=== PATIENT | female | born 1940 | race Caucasian/White ===

== ENCOUNTER 2017-09-20 11:51 | Emergency (ER) | payer OTHER ==
[~2017-09-20] VITALS: Ht 172.7 cm; Wt 69.8 kg
[2017-09-20] MEDS ORDERED: MOBIC15 MG PO (12:16)
[2017-09-20] MEDS ORDERED: XANAX 0.5 MG0.5 MG PO (12:17)
[2017-09-20] MEDS ORDERED: LEXAPRO5 MG PO (12:18)
[2017-09-20] MEDS ORDERED: ULTRAM 50MG TAB50 MG PO (12:18)
[2017-09-20 13:23] VITALS: BP 129/77
[2018-02-19] MEDS ORDERED: DOXYCYCLINE 10100 MG PO (18:04)
== END 2017-09-20 13:26 | disposition home or self-care (01) ==
LOC: ER 11:51
DX: S70.01XA Contusion of right hip, initial encounter (principal); S40.011A Contusion of right shoulder, initial encounter; S09.90XA Unspecified injury of head, initial encounter; W18.30XA Fall on same level, unspecified, initial encounter; Y93.89 Activity, other specified; Y92.89 Other specified places as the place of occurrence of the external cause; Y99.8 Other external cause status

== ENCOUNTER 2017-10-19 11:32 | Inpatient (IN) | payer OTHER ==
[~2017-10-19] VITALS: Ht 172.7 cm; Wt 56.9 kg
[~2017-10-19 11:32] MED LIST: LEXAPRO5 MG PO; MOBIC15 MG PO; ULTRAM 50MG TAB50 MG PO; XANAX 0.5 MG0.5 MG PO
[2017-10-19 11:37] VITALS: BP 104/65
[2017-10-19 12:39] LABS: ABSOLUTE NEUTROPHILS 3.8 thou/uL (1.4-8.2); BASOPHILS 0.4 % (0.0-2.0); EOSINOPHILS 1.3 % (0.0-3.0); HEMATOCRIT 37.1 % (37.0-47.0); HEMOGLOBIN 12.9 gm/dL (12.0-15.0); LYMPHOCYTES 22.9 % (24.0-44.0); MCH 32.4 pg (26.0-34.0); MCHC 34.8 g/dL (28.0-37.0); MCV 93.3 fL (80.0-100.0); MONOCYTES 8.9 % (1.0-8.0); PLATELET COUNT 175 thou/uL (150-400); POLYS 66.5 % (36.0-66.0); RBC 3.98 mil/uL (4.20-5.00); RDW 12.8 % (10.5-14.5); WBC 5.8 thou/uL (4.0-11.0)
[2017-10-19 12:47] LABS: CALCIUM 9.4 mg/dL (8.5-10.1); CREATININE 0.6 mg/dL (0.6-1.0); POTASSIUM 3.9 mmol/L (3.5-5.1)
[2017-10-19] MEDS ORDERED: ASPIRIN EC81 M1 PO (13:29)
[2017-10-19 15:04] LABS: FOLIC ACID 19.8 ng/mL (8.6-58.9)
[2017-10-19 21:22] VITALS: BP 127/67
[2017-10-19 21:50] VITALS: BP 132/81
[2017-10-19 21:52] VITALS: BP 123/72
[2017-10-20 03:40] VITALS: BP 126/76
[2017-10-20 07:21] VITALS: BP 122/79
[2017-10-20 11:37] VITALS: BP 122/79
[2017-10-20 16:03] VITALS: BP 152/76
[2017-10-20 19:01] VITALS: BP 133/82
[2017-10-21 04:51] VITALS: BP 148/82
[2017-10-21 06:44] LABS: ALBUMIN 3.3 g/dL (3.4-5.0); CALCIUM 8.9 mg/dL (8.5-10.1); CREATININE 0.8 mg/dL (0.6-1.0); MAGNESIUM 1.9 mg/dL (1.8-2.4); POTASSIUM 3.7 mmol/L (3.5-5.1); TOTAL BILIRUBIN 0.4 mg/dL (<0.1-1.0); TOTAL PROTEIN 6.5 g/dL (6.4-8.2)
[2017-10-21 07:37] VITALS: BP 147/85
[2017-10-21 16:44] VITALS: BP 120/64
[2017-10-21 19:25] VITALS: BP 124/83
[2017-10-22 04:50] VITALS: BP 125/71
[2017-10-22 08:09] VITALS: BP 113/71
[2017-10-22 11:12] VITALS: BP 122/79
[2018-02-19] MEDS ORDERED: DOXYCYCLINE 10100 MG PO (18:04)
== END 2017-10-22 11:25 | disposition home or self-care (01) | DRG 543 ==
LOC: ER 11:32 → 3W 13:18 → EROBS 13:18 → 3W 21:56
PROVIDERS: Nurse Practitioner; Physician Assistant; Registered Nurse
DX: M84.359A Stress fracture, hip, unspecified, initial encounter for fracture (principal); E44.0 Moderate protein-calorie malnutrition; R26.2 Difficulty in walking, not elsewhere classified; M19.90 Unspecified osteoarthritis, unspecified site; G30.9 Alzheimer's disease, unspecified; F02.80 Dementia in other diseases classified elsewhere, unspecified severity, without behavioral disturbance, psychotic disturbance, mood disturbance, and anxiety; F32.9 Major depressive disorder, single episode, unspecified; F41.9 Anxiety disorder, unspecified; Z66 Do not resuscitate; M62.84 Sarcopenia; E53.8 Deficiency of other specified B group vitamins; Z87.891 Personal history of nicotine dependence; Z79.82 Long term (current) use of aspirin; Z79.899 Other long term (current) drug therapy
CPT/HCPCS: 10080

== ENCOUNTER → 2017-10-30 | Outpatient (CLI) | payer OTHER ==
[~2017-10-30] MED LIST changes: +ASPIRIN EC81 M1 PO; +DOXYCYCLINE 10100 MG PO
== END ==
LOC: SEN 10:49
DX: M81.0 Age-related osteoporosis without current pathological fracture (principal); E55.9 Vitamin D deficiency, unspecified

== ENCOUNTER 2019-01-21 08:21 | Emergency (ER) | payer OTHER ==
[~2019-01-21] VITALS: Ht 172.7 cm; Wt 72.6 kg
[2019-01-21 09:29] LABS: ABSOLUTE NEUTROPHILS 3.3 thou/uL (1.4-8.2); BASOPHILS 0.3 % (0.0-2.0); EOSINOPHILS 0.8 % (0.0-3.0); HEMATOCRIT 37.5 % (37.0-47.0); LYMPHOCYTES 22.3 % (24.0-44.0); MCH 31.9 pg (26.0-34.0); MCHC 34.6 g/dL (28.0-37.0); MCV 92.3 fL (80.0-100.0); MONOCYTES 7.8 % (1.0-8.0); PLATELET COUNT 173 thou/uL (150-400); POLYS 68.8 % (36.0-66.0); RBC 4.06 mil/uL (4.20-5.00); RDW 12.9 % (10.5-14.5); WBC 4.7 thou/uL (4.0-11.0)
[2019-01-21 09:37] LABS: URINE BILIRUBIN NEGATIVE (Negative); URINE BLOOD 1+ (Negative); URINE CLARITY CLEAR; URINE COLOR YELLOW; URINE GLUCOSE-RANDOM* NEGATIVE (Negative); URINE KETONES NEGATIVE (Negative); URINE LEUKOCYTES-REFLEX TRACE (Negative); URINE NITRITE-REFLEX NEGATIVE (Negative); URINE PROTEIN (DIPSTICK) NEGATIVE (Negative); URINE SPECIFIC GRAVITY <= 1.005 (1.005-1.035); URINE UROBILINOGEN 0.2 E.U./dl (0.2-1.0)
--- NOTE | 2019-01-21 09:37 | EKG ---
[place] [address] [facility] [place] [address] ELECTROCARDIOGRAM REPORT Name: AILYN LONG LACI [id number] ������������������ Admission: 01/21/19 ������������������ Attend Phys: Discharge: ������������������ Date of : 42 Report #: [id number] ����������������������������������������������������������������� [id number] THIS REPORT FOR: //name// [facility] ED Test Date: 2019-01-21 Test Time: 08:55:48 Pat Name: AILYN LONG Department: Room: Gender: F Parking Enforcement Officer: LUDWIG : 1940 Requested By: Reji Schneider Order Number: [id number] MD: Imer Adame Measurements Intervals [place] Rate: 86 P: 50 HI: 142 QRS: 54 QRSD: 82 T: 48 QT: 389 QTc: 466 Interpretive Statements Sinus rhythm Normal tracing No previous ECG available for comparison Electronically Signed On 01-21-2019 9:36:49 CDT by Imer Adame [email or web address] ��������������������������������������������� <ELECTRONICALLY SIGNED> ���������������������������������������� By: Imer Adame MD, [facility] ��������������������������������������������� 01/21/19 [id number] Imer Adame MD, FACC /EPI
[2019-01-21 09:38] LABS: ANION GAP 8 mmol/L (7-16); BUN 16 mg/dL (7-18); CALCIUM 9.7 mg/dL (8.5-10.1); CHLORIDE 102 mmol/L (98-107); CO2 28 mmol/L (21-32); CREATININE 0.9 mg/dL (0.6-1.0); GLUCOSE 113 mg/dL (74-106); POTASSIUM 3.8 mmol/L (3.5-5.1); SODIUM 138 mmol/L (136-145)
[2019-01-21 09:45] LABS: AMP/METHAMP Negative (Negative); BARBITURATES Negative (Negative); BENZODIAZEPINES POSITIVE (Negative); COCAINE Negative (Negative); METHADONE Negative (Negative); OPIATES Negative (Negative); PCP Negative (Negative)
[2019-01-21 09:48] LABS: MAGNESIUM 1.7 mg/dL (1.8-2.4); SGOT 17 U/L (15-37); SGPT 18 U/L (30-65); TOTAL BILIRUBIN 0.5 mg/dL (<0.1-1.0); TOTAL PROTEIN 7.4 g/dL (6.4-8.2); TROPONIN-I <0.06 ng/mL (<0.06)
[2019-01-21 10:00] LABS: CASTS None Seen /LPF (None Seen); SQUAMOUS 4-10 Moderate /LPF (0-3)
[2019-01-21 10:01] LABS: BACTERIA-REFLEX 1-9 Few /HPF (None Seen); CRYSTALS None Seen /LPF (None Seen); URINE RBC 0-2 Rare /HPF (0-2); URINE WBC-REFLEX 0-5 Rare /HPF (0-5)
[2019-01-21 10:40] VITALS: BP 128/72
== END 2019-01-21 10:43 | disposition home or self-care (01) ==
LOC: ER 08:21
PROVIDERS: Emergency Medicine
DX: F03.90 Unspecified dementia, unspecified severity, without behavioral disturbance, psychotic disturbance, mood disturbance, and anxiety (principal); M19.90 Unspecified osteoarthritis, unspecified site; F32.9 Major depressive disorder, single episode, unspecified; Z87.891 Personal history of nicotine dependence

== ENCOUNTER 2020-01-09 16:49 | Emergency (ER) | payer OTHER ==
[~2020-01-09] VITALS: Ht 170.2 cm; Wt 53.5 kg
[2020-01-09 17:40] LABS: ABSOLUTE NEUTROPHILS 5.2 thou/uL (1.4-8.2); BASOPHILS 0.3 % (0.0-2.0); EOSINOPHILS 0.1 % (0.0-3.0); HEMATOCRIT 39.8 % (37.0-47.0); HEMOGLOBIN 13.6 gm/dL (12.0-15.0); MCH 32.5 pg (26.0-34.0); MCHC 34.3 g/dL (28.0-37.0); MONOCYTES 7.3 % (1.0-8.0); PLATELET COUNT 205 thou/uL (150-400); POLYS 79.3 % (36.0-66.0); RBC 4.19 mil/uL (4.20-5.00); RDW 13.7 % (10.5-14.5); WBC 6.5 thou/uL (4.0-11.0)
[2020-01-09 17:48] LABS: CALCIUM 8.6 mg/dL (8.5-10.1); CREATININE 0.9 mg/dL (0.6-1.0); POTASSIUM 3.3 mmol/L (3.5-5.1)
[2020-01-09 17:54] LABS: ALBUMIN 3.9 g/dL (3.4-5.0); TOTAL BILIRUBIN 0.3 mg/dL (<0.1-1.0); TOTAL PROTEIN 6.9 g/dL (6.4-8.2)
[2020-01-09 18:08] LABS: URINE BILIRUBIN NEGATIVE (Negative); URINE BLOOD TRACE (Negative); URINE CLARITY CLEAR; URINE COLOR YELLOW; URINE GLUCOSE-RANDOM* NEGATIVE (Negative); URINE KETONES NEGATIVE (Negative); URINE PROTEIN (DIPSTICK) NEGATIVE (Negative)
[2020-01-09 18:13] LABS: URINE LEUKOCYTES-REFLEX 1+ (Negative); URINE NITRITE-REFLEX POSITIVE (Negative)
[2020-01-09 18:27] LABS: SQUAMOUS 0-3 Few /LPF (0-3)
[2020-01-09 18:28] LABS: BACTERIA-REFLEX 1-9 Few /HPF (None Seen); CASTS None Seen /LPF (None Seen); CRYSTALS None Seen /LPF (None Seen); URINE RBC 0-2 Rare /HPF (0-2)
[2020-01-09 21:15] VITALS: BP 138/91
== END 2020-01-09 22:01 | disposition home or self-care (01) ==
LOC: ER 16:49
PROVIDERS: Physician Assistant
DX: N39.0 Urinary tract infection, site not specified (principal); M19.90 Unspecified osteoarthritis, unspecified site; Z87.891 Personal history of nicotine dependence